=== PATIENT | female | born 1975 | race Caucasian/White ===

== ENCOUNTER 2016-11-27 03:44 | Emergency (ER) | payer MEDICAID ==
[~2016-11-27] VITALS: Ht 154.9 cm; Wt 68.0 kg
[2016-11-27 04:50] LABS: CREATININE 0.8 mg/dL (0.6-1.3); POTASSIUM 3.4 mmol/L (3.5-5.1)
[2016-11-27 04:51] LABS: BASOPHILS % (AUTO) 0.4 % (0.0-2.0); EOSINOPHILS # (AUTO) 0.1 K/uL (0.0-0.7); EOSINOPHILS % (AUTO) 1.9 % (0.0-7.0); HEMATOCRIT 27.9 % (37-47); HEMOGLOBIN 8.7 G/DL (12.0-16.0); LYMPHOCYTES % (AUTO) 12.8 % (20.5-51.5); MEAN CORPUSCULAR HEMOGLOBIN 21.4 UUG (27.0-31.0); MEAN CORPUSCULAR HGB CONC 31 g/dL (32.0-37.0); MEAN CORPUSCULAR VOLUME 68.6 FL (81.0-99.0); MONOCYTES # (AUTO) 0.8 K/UL (0.1-1.30); MONOCYTES % (AUTO) 10.5 % (0.0-11.0); NEUTROPHILS # (AUTO) 5.7 K/UL (1.8-8.9); NEUTROPHILS % (AUTO) 74.4 % (38.5-71.5); PLATELET COUNT (AUTO) 457 K/UL (150-450); RED BLOOD CELL COUNT(AUTO) 4.07 MIL/UL (4.2-5.4); WHITE BLOOD COUNT (AUTO) 7.6 K/UL (4.0-11.2)
[2016-11-27 04:55] LABS: BILIRUBIN,TOTAL 0.1 mg/dL (0.2-1.0); TOTAL PROTEIN, SERUM 7.2 g/dL (6.4-8.2)
--- NOTE | 2016-11-27 05:32 | NUR ---
Significant other contact infor: Daljit [phone] , call when patient is ready to D/C
--- NOTE | 2016-11-27 07:03 | NUR ---
Report given to Sridhar KAUFMAN
--- NOTE | 2016-11-27 07:29 | NUR ---
PT WAS D/C TO HOME. D/C INSTRUCTIONS GIVEN TO THE PT. NO SOB. NO N/V. PT DENIES PAIN.
[2016-11-27 07:31] VITALS: BP 148/96
[2016-11-27 08:59] LABS: BAND % (MANUAL) 1 % (0-10); EOSINOPHILS % (MANUAL) 2 % (0-8); LYMPHOCYTES % (MANUAL) 13 % (20-40); MONOCYTES % (MANUAL) 8 % (2-10); NEUTROPHILS % (MANUAL) 76 % (42-75)
== END 2016-11-27 07:31 | disposition home or self-care (01) ==
LOC: ER 03:49
DX: J20.9 Acute bronchitis, unspecified (principal); D64.9 Anemia, unspecified; E87.6 Hypokalemia; I10 Essential (primary) hypertension
CPT/HCPCS: 36415; 71010; 85025; 93005; A4663; J2930; J3490; J3590; J7030